=== PATIENT | male | born 2000 | race Caucasian/White ===

== ENCOUNTER → 2022-02-21 14:01 | Outpatient (CLI) | payer OTHER, BC, SELFPAY ==
[2022-02-21 14:27] LABS: COVID19 -Nasal RAPID Negative (Negative)
== END ==
PROVIDERS: PCP Physician Assistant; Visit Provider Surgery
DX: Z01.812 Encounter for preprocedural laboratory examination (principal); Z20.822 Contact with and (suspected) exposure to COVID-19
CPT/HCPCS: 87635

== ENCOUNTER 2022-02-21 15:03 | Day surgery (SDC) | payer OTHER, BC, SELFPAY ==
[2022-02-21] VITALS (8 sets, daily range): BP systolic 101–117; BP diastolic 48–80; PULSE 61–82; RESP 12–17; TEMP 36.8–37.1; O2SAT 91–98; BMI 30.4
[2022-02-21] MEDS: LACTATED RINGERS 1,000 ML 42 ML IV (15:34)
--- NOTE | 2022-02-21 16:49 | PM.PREOP ---
Pre-operative Note COVID-19 COVID-19 status: Negative Result date/Date tested (Pos, Neg/Pending): 02/20/22 Interval Note History & Physical reviewed/Exam performed by Physician: Yes Changes to H&P: No ASA Class (for procedural sedation): I
--- NOTE | 2022-02-21 17:18 | SUR.OPER ---
Lithotomy on padded OR bed, head on pillow, arms secured on padded arm boards at <90 degrees abduction. Legs secured in padded yellow fins stirrups.
[2022-02-21] MEDS: BUPIVACAINE LIPOSOME 266 MG/20 ML VIAL INJ (17:22)
--- NOTE | 2022-02-21 17:35 | P.OP_ITS ---
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 General anesthesia was induced. The legs were placed in high lithotomy position. The perineum was prepped and draped in the usual fashion a time-out was performed. The old I and D scar was visualized and the external opening was noted to be just at the posterior border of this scar probe was inserted into the external opening but no tract could be felt traversing anterior toward the anus. A 15 blade scalpel was used to extend the opening to about 4 mm. A digital rectal exam was performed with lubrication and was normal. The Hill-Nava retractor was inserted into the rectum and no abnormalities were noted. Hydrogen peroxide was injected using an angiocatheter and no internal opening was visualized. Probe was reinserted and the tract actually seemed to be traversing superior towards the sacrum. Further inspecti on of the gluteal cleft demonstrated more pits in the midline and the realization was made that the patient actually had pilonidal disease. The procedure was terminated and patient was awakened brought to recovery room. EBL: 1 mL Post-operative Condition: stable Disposition: PACU
== END 2022-02-21 18:23 | disposition home or self-care (01) ==
PROVIDERS: PCP Physician Assistant; Referring Provider Surgery; Visit Provider Surgery
PROC: (CPT 45990; principal; 2022-02-21 16:15)
DX: L05.92 Pilonidal sinus without abscess (principal); Z20.822 Contact with and (suspected) exposure to COVID-19; Z01.812 Encounter for preprocedural laboratory examination
CPT/HCPCS: 10080; 87635; C9803; C9290; J1100; J2250; J2405; J2704; J3010